=== PATIENT | male | born 1960 | race Caucasian/White ===

== ENCOUNTER 2017-12-23 23:46 | Emergency (ER) | payer BC, OTHER ==
[2017-12-23 23:52] VITALS: BP 122/83
[2017-12-24] MEDS ORDERED: Sodium Chloride 0.9% 10 ML Syringe FLUSH PRN (00:20)
[2017-12-24] MEDS ORDERED: Sodium Chloride 0.9% 500 ML IV ONE (00:20)
--- NOTE | 2017-12-24 02:19 | EDM.PDOC ---
ED HPI GENERAL MEDICAL PROBLEM - General Chief Complaint: Neurological Problem Stated Complaint: [facility] Time Seen by Provider: 12/24/17 00:05 Source of Information: Reports: Patient, EMS, RN Notes Reviewed - History of Present Illness INITIAL COMMENTS - FREE TEXT/NARRATIVE: 57-year-old male has been brought in by [facility] after suffering syncopal event, possible seizure. Patient was at work, does remember getting somewhat weak, lightheaded and dizzy. He knows he was lyingon the floor of a shed where he had been standing. He states that a coworker that was with him "told him he had a seizure". Her details of what actually happened or unknown. EMS dropped him off while I was busy with another patient and I did not get any personal history from them. Fairly the transport here was uneventful. Patient has no complaints of headache chest abdominal or other discomfort at this time. He states he did suffer an alcohol withdrawal seizure about 6 or 7 years ago but now has not been drinking alcohol for about 6 years. He states he is working long hours, 12-13 hours a day , 20 days in a row before getting a break. He states his diet is "unhealthy, is drinking way too much caffeine in the form of coffee. He states he had prior neurologic workup including EEG which did not show any evidence for seizure disorder. 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) Neurological History: Reports: Concussion, Seizure Other Neuro History: states has been over a year since his last seizure Psychiatric History: Reports: Anxiety - Past Surgical History Head Surgeries/Procedures: Reports: None GI Surgical History: Reports: Appendectomy, Colonoscopy Musculoskeletal Surgical History: Reports: Shoulder Surgery Social & Family History - Family History Family Medical History: Noncontributory - Tobacco Use Smoking Status *Q: Never Smoker - Caffeine Use Caffeine Use: Reports: Coffee - Recreational Drug Use Recreational Drug Use: No ED ROS GENERAL - Review of Systems Review Of Systems: See Below Constitutional: Denies: Fever, Chills HEENT: Denies: Throat Pain Respiratory: Denies: Shortness of Breath Cardiovascular: Denies: Chest Pain GI/Abdominal: Denies: Abdominal Pain, Nausea, Vomiting Musculoskeletal: Denies: Neck Pain, Shoulder Pain, Arm Pain, Back Pain, Joint Pain Skin: Reports: Erythema (There is mild erythema to the left side of his face, apparently from his fall) Neurological: Reports: Dizziness (Gone), Headache (Very mild posterior) - Physical Exam Exam: See Below General Appearance: Alert, No Apparent Distress Eye Exam: Bilateral Eye: PERRL Ears: Normal External Exam Nose: Normal Inspection Throat/Mouth: Normal Inspection, Other (He does have what looks like a very small superficial abrasion of the right distal tongue) Head Exam: Atraumatic, Other (There is mild erythema of the left face, no bony tenderness of the head or face) Respiratory/Chest: No Respiratory Distress, Lungs Clear, Normal Breath Sounds Cardiovascular: Regular Rate, Rhythm GI/Abdominal: Soft, Non-Tender Neuro Exam (Abbreviated): Alert, Oriented, No Motor/Sensory Deficits, Other ( Finger to nose testing normal) Back Exam: Normal Inspection, Full Range of Motion Extremities: Normal Inspection, Normal Range of Motion Skin Exam: Warm, Dry, Normal Color Course - Vital Signs Last Recorded V/S: Last Vital Signs Temp 98.6 F 12/23/17 23:49 Pulse 94 12/23/17 23:49 Resp 18 12/23/17 23:49 BP 122/83 12/23/17 23:49 Pulse Ox 99 12/23/17 23:49 - Orders/Labs/Meds Orders: Active Orders 24 hr Category Date Time Status Peripheral IV Care [RC] . DIRECTED Care 12/24/17 00:20 Active Peripheral IV Insertion Adult [OM.PC] Stat Oth 12/24/17 00:20 Ordered Labs: Laboratory Tests 12/24/17 12/24/17 Range/Units 00:31 00:31 WBC 14.04 H (4.23-9.07) K/mm3 RBC 4.83 (4.63-6.08) M/mm3 Hgb 14.9 (13.7-17.5) gm/L Hct 41.5 (40.1-51.0) % MCV 85.9 (79.0-92.2) fl MCH 30.8 (25.7-32.2) pg MCHC 35.9 H (32.2-35.5) g/dl RDW Std Deviation 43.7 (35.1-43.9) fL Plt Count 155 L (163-337) K/mm3 MPV 10.8 (9.4-12.3) fl Neut % (Auto) 87.4 H (34.0-67.9) % Lymph % (Auto) 6.5 L (21.8-53.1) % Hays % (Auto) 5.7 (5.3-12.2) % Eos % (Auto) 0.1 L (0.8-7.0) Baso % (Auto) 0.1 (0.1-1.2) % Neut # (Auto) 12.27 H (1.78-5.38) K/mm3 Lymph # (Auto) 0.91 L (1.32-3.57) K/mm3 Hays # (Auto) 0.80 (0.30-0.82) K/mm3 Eos # (Auto) 0.01 L (0.04-0.54) K/mm3 Baso # (Auto) 0.02 (0.01-0.08) K/mm3 Manual Slide Review Abnormal smear Sodium 139 (136-145) mEq/L Potassium 3.9 (3.5-5.1) mEq/L Chloride 104 (98-107) mEq/L Carbon Dioxide 26 (21-32) mEq/L Anion Gap 12.9 (5-15) BUN 14 (7-18) mg/dL Creatinine 1.1 (0.7-1.3) mg/dL Est Cr Clr Drug Dosing 59.63 mL/min Estimated GFR (MDRD) > 60 (>60) mL/min BUN/Creatinine Ratio 12.7 L (14-18) Glucose 145 H (74-106) mg/dL Calcium 8.8 (8.5-10.1) mg/dL Total Bilirubin 0.4 (0.2-1.0) mg/dL AST 16 (15-37) U/L ALT 26 (16-63) U/L Alkaline Phosphatase 53 (46-116) U/L Total Protein 7.2 (6.4-8.2) g/dl Albumin 3.8 (3.4-5.0) g/dl Globulin 3.4 gm/dL Albumin/Globulin Ratio 1.1 (1-2) Meds: Medications Discontinued Medications Generic Name Dose Route Start Last Admin Trade Name Freq PRN Reason Stop Dose Admin Sodium Chloride 500 mls @ 999 mls/hr 12/24/17 00:20 12/24/17 00:32 Normal Saline IV 12/24/17 00:50 999 mls/hr .BOLUS ONE Administration Sodium Chloride 10 ml 12/24/17 00:20 12/24/17 00:32 Saline Flush FLUSH 10 ml ASDIRECTED PRN Administration Keep Vein Open - Re-Assessments/Exams Free Text/Narrative Re-Assessment/Exam: 12/24/17 02:21 environmental monitoring technician showed heart rate in the 80s and 90s, sinus rhythm, no ectopy. Labs have come back normal. He is been resting comfortably, no significant discomfort. He is going to call for a ride. discharge instructions as documented. Departure - Departure Time of Disposition: 02:31 Disposition: Home, Self-Care 01 Condition: Fair Clinical Impression: Syncope, convulsive - Discharge Information Instructions: Syncope, [id number] Referrals: Darlin Nieves [Primary Care Provider] - Forms: ED Department Discharge Additional Instructions: Rest, eat regular meals and snacks, try hard to reduce your caffeine intake, it is possible that you did have a seizure this evening, or you may have had some brief seizure activity from passing out. It is recommend that you not drive for your safety and the safety of others until given medical clearance by your regular medical provider, see your regular medical provider in 2-3 days for follow-up evaluation, return to ED as needed if symptoms worsening in any way. - My Orders Last 24 Hours: My Active Orders 12/24/17 00:20 Peripheral IV Care [RC] . DIRECTED Peripheral IV Insertion Adult [OM.PC] Stat - Assessment/Plan Last 24 Hours: My Active Orders 12/24/17 00:20 Peripheral IV Care [RC] . DIRECTED Peripheral IV Insertion Adult [OM.PC] Stat
== END 2017-12-24 02:36 | disposition home or self-care (01) ==
LOC: JD.ED 23:46
DX: R55 Syncope and collapse (principal); R56.9 Unspecified convulsions; K21.9 Gastro-esophageal reflux disease without esophagitis; Z79.899 Other long term (current) drug therapy; Z90.49 Acquired absence of other specified parts of digestive tract
CPT/HCPCS: 36415; 80053; 85025; 96360; 99284; J7040; J7050; 99283